=== PATIENT | male | born 1980 | race Caucasian/White ===

== ENCOUNTER 2017-03-21 17:24 | Emergency (ER) | payer MEDICAID ==
[~2017-03-21] VITALS: Ht 167.6 cm; Wt 75.5 kg
[~2017-03-21 17:24] MED LIST: ACET500T98; IBUP-725
[2017-03-21 17:29] VITALS: Ht 167.6 cm; Wt 75.5 kg
--- NOTE | 2017-03-21 19:01 | ERD ---
ER Documentation Chief Complaint Date/Time DATE: 03/21/17 TIME: 19:00 Chief Complaint Complains of back pain x 2 days HPI 36-year-old male presents here to emergency department for complaints of lower back pain for 2 days. Patient describes the pain as sharp pain,6/10 scale, as was upon movement. Patient denies any hematuria or dysuria. Patient denies any fever or chills. Patient denies any nausea or vomiting. Patient did not take any medications to help with symptoms. ROS All systems reviewed and are negative except as per history of present illness. Medications Home Meds Reported Medications Ibuprofen (Motrin) 400 Mg Tablet 07/23/10 Acetaminophen (Tylenol) 500 Mg Tab 07/23/10 Allergies Allergies: Coded Allergies: No Known Drug Allergies (Verified Allergy, Mild, 07/26/10) PMhx/Soc Medical and Surgical Hx: pt denies Medical Hx, pt denies Surgical Hx History of Surgery: No Anesthesia Reaction: No Hx Neurological Disorder: No Hx Respiratory Disorders: No Hx Cardiac Disorders: No Hx Psychiatric Problems: No Hx Miscellaneous Medical Probl: No Hx Alcohol Use: Yes (Social) Hx Substance Use: No Hx Tobacco Use: No FmHx Family History: No coronary disease, No diabetes, No other Physical Exam Vitals Vital Signs Date Time Temp Pulse Resp B/P Pulse Ox O2 Delivery O2 Flow Rate FiO2 03/21/17 17:29 98.2 71 20 138/81 99 Physical Exam GENERAL: The patient is well developed and appropriate for usual state of health, in no apparent distress. CHEST: Clear to auscultation bilaterally. There are no rales, wheezes or rhonchi. HEART: Regular rate and rhythm. No murmurs, clicks, rubs or gallops. No S3 or S4. ABDOMEN: Soft, nontender and nondistended. Good bowel sounds. No rebound or guarding. No gross peritonitis. No gross organomegaly or masses. No Velasquez sign or McBurney point tenderness. BACK: No midline or flank tenderness. EXTREMITIES: Equal pulses bilaterally. There is no peripheral clubbing, cyanosis or edema. No focal swelling or erythema. Full range of motion. Grossly neurovascularly intact. NEURO: Alert and oriented. Cranial nerves 2-12 intact. Motor strength in all 4 extremities with 5/5 strength. Sensation grossly intact. Normal speech and gait. SKIN: There is no apparent rash or petechia. The skin is warm and dry. HEMATOLOGIC AND LYMPHATIC: There is no evidence of excessive bruising or lymphedema. No gross cervical, axillary, or inguinal lymphadenopathy. Results 24 hrs Laboratory Tests Test 03/21/17 19:00 Urine Color YELLOW Urine Clarity CLEAR Urine pH 5.0 Urine Specific [place] 1.029 Urine Ketones NEGATIVEmg/dL Urine Nitrite NEGATIVEmg/dL Urine Bilirubin NEGATIVEmg/dL Urine Urobilinogen NEGATIVEmg/dL Urine Leukocyte Esterase NEGATIVELeu/ul Urine Hemoglobin NEGATIVEmg/dL Urine Glucose NEGATIVEmg/dL Urine Total Protein NEGATIVEmg/dl PROCEDURE: CT lumbar spine without contrast CLINICAL INDICATION: Low back pain TECHNIQUE: CT scan of the lumbar spine was performed. No IV contrast was administered. Coronal and sagittal reformatted images were obtained from the axial source images. Use of iterative reconstruction technique was employed. Images were reviewed on a high-resolution PACS workstation. images. The calculated radiation dose measures 309.45 mGy centimeters. The CTDI measures 13.12 mGy. One or more of the following dose reduction techniques were used: - Automated exposure control. - Adjustment of the mA and/or kV according to patient size . - Use of iterative reconstruction technique. Images were reviewed on a high-resolution PACS workstation COMPARISON: None. FINDINGS: There is preservation of the normal lumbar lordosis. There are no acute vertebral body fractures. The paraspinal soft tissues are within normal limits.. T12-L1:The disk height is preserved. There is no spinal stenosis. The facet joints are maintained. L1-L2:The disk height is preserved. There is no spinal stenosis. The facet joints are maintained. L2-L3:The disk height is preserved. There is no spinal stenosis. The facet joints are maintained. L3-L4:The disk height is preserved. There is no spinal stenosis. The facet joints are maintained. L4-L5:The disk height is preserved. There is no spinal stenosis. The facet joints are maintained. L5-S1:The disk height is preserved. There is no spinal stenosis. The facet joints are maintained. IMPRESSION: 1. No acute osseous abnormality or evidence of fracture. 2. Preserved disc spaces. RPTAT: UU .Erick de la Lama, MD, MD Date Time Electronically viewed and signed by .Erick Canales MD, MD on 03/21/2017 19:02 .d/ CC: MARY BETH CHRISTIANSON NP Procedures/MDM Medical Decision Making: Patient's pain is most likely consistent with a back strain. There is no suspicion for neurovascular compromise. Patient has intact sensation and circulation of the affected extremity and distal extremities. No incontinence, no suspicion for cauda equina syndrome, no saddle anesthesia, no symptoms of any acute bacterial infection, no symptoms of any perirectal abscesses, pilonidal cyst.There is low suspicion for septic arthritis. Patient does not have any fever. No symptoms of any aortic dissection or aortic aneurysm. Radiology exam not indicated at this time. Disposition: Home. Patient is given prescription for ibuprofen for mild to moderate pain, [place] for severe pain, Flexeril for muscle spasm. Patient was advised to avoid heavy lifting , apply warm compresses on affected area. Patient was advised that if symptoms are worse, numbness, tingling, high fever, unable to move joint, worsening symptoms, to return to emergency department immediately. Otherwise, patient is advised to follow up with the primary care doctor in 5-7 days for reevaluation of symptoms. Disclaimer: Inadvertent spelling and grammatical errors are likely due to EHR/ dictation software use and do not reflect on the overall quality of patient care. Also, please note that the electronic time recorded on this note does not necessarily reflect the actual time of the patient encounter. Departure Diagnosis: Primary Impression: Back pain Back pain location: low back pain Chronicity: acute Back pain laterality: bilateral Sciatica presence: without sciatica Qualified Code: M54.5 - Acute bilateral low back pain without sciatica Condition: Stable Patient Instructions: Back Pain (Acute Or Chronic) MARY BETH CHRISTIANSON NP Mar 21, 2017 19:01
[2017-03-21 19:34] LABS: ADD UMIC NO; UR ASCORBIC ACID NEGATIVE (NEGATIVE); UR BILIRUBIN (Dip) NEGATIVE (NEGATIVE); UR BLOOD (Dip) NEGATIVE (NEGATIVE); UR CLARITY CLEAR (CLEAR); UR COLOR YELLOW (YELLOW); UR GLUCOSE (Dip) NEGATIVE (NEGATIVE); UR KETONES (Dip) NEGATIVE (NEGATIVE); UR LEUKOCYTE ESTERASE (Dip) NEGATIVE Leu/ul (NEGATIVE); UR NITRITE (Dip) NEGATIVE (NEGATIVE); UR SPECIFIC GRAVITY (Dip) 1.029 (1.003-1.030); UR TOTAL PROTEIN (Dip) NEGATIVE (NEGATIVE); UR UROBILINOGEN (Dip) NEGATIVE (NEGATIVE)
[2017-03-21] MEDS ORDERED: IBUP-1542 PO (19:39)
[2017-03-21] MEDS ORDERED: HYDR-906 PO (19:39)
[2017-03-21] MEDS ORDERED: CYCL-319 PO (19:39)
[2017-03-21 20:04] VITALS: BP 128/79; PULSE 81; RESP 18; TEMP 98.5
== END 2017-03-21 20:05 | disposition home or self-care (01) ==
LOC: FTE 17:24
DX: M54.5 Low back pain (principal)
CPT/HCPCS: 72131; 81003; Z7502

== ENCOUNTER 2017-03-31 09:05 | Emergency (ER) | payer MEDICAID ==
[~2017-03-31] VITALS: Ht 165.1 cm; Wt 77.0 kg
[~2017-03-31 09:05] MED LIST changes: +CYCL-319 PO; +HYDR-906 PO; +IBUP-1542 PO
[2017-03-31 09:08] VITALS: Ht 165.1 cm; Wt 77.0 kg
[2017-03-31] MEDS ORDERED: LIDOCAINE/MYLANTA 40 ML BTL PO STA (09:29)
--- NOTE | 2017-03-31 09:39 | ERD ---
ER Documentation Chief Complaint Chief Complaint EPIGASTRIC PAIN RADIATING TO BACK 3WKS, SEEN HERE BEFORE HPI 36-year-old male with history of gastritis presents with epigastric abdominal pain radiating to his left upper quadrant and mid back for 3 weeks. Pain is constant, not improving with Nexium. Patient reports that it is achy pain, no change with food. He denies any trauma, fevers, chills, chest pain or shortness of breath. ROS All systems reviewed and are negative except as per history of present illness. Medications Home Meds Active Scripts Ranitidine Hcl* (Zantac*) 150 Mg Tablet, 150 MG PO BID Y for EPIGASTRIC PAIN, # 30 TAB Prov:RAY DELGADILLO PA-C 03/31/17 Cyclobenzaprine Hcl* (Cyclobenzaprine Hcl*) 10 Mg Tablet, 10 MG PO TID, #15 TAB Prov:MARY BETH CHRISTIANSON NP 03/21/17 Hydrocodone/Acetaminophen ([place] 5-325 Tablet) 1 Each Tablet, 1 TAB PO Q6H Y for PAIN, #20 TAB Prov:MARY BETH CHRISTIANSON NP 03/21/17 Ibuprofen* (Motrin*) 600 Mg Tab, 600 MG PO Q6H Y for PAIN AND OR ELEVATED TEMP, #30 TAB Prov:MARY BETH CHRISTIANSON NP 03/21/17 Reported Medications Ibuprofen (Motrin) 400 Mg Tablet 07/23/10 Acetaminophen (Tylenol) 500 Mg Tab 07/23/10 Allergies Allergies: Coded Allergies: No Known Drug Allergies (Verified Allergy, Mild, 07/26/10) PMhx/Soc History of Surgery: No Anesthesia Reaction: No Hx Neurological Disorder: No Hx Respiratory Disorders: No Hx Cardiac Disorders: No Hx Psychiatric Problems: No Hx Miscellaneous Medical Probl: No Hx Alcohol Use: Yes (Social) Hx Substance Use: No Hx Tobacco Use: No Smoking Status: Never smoker Physical Exam Vitals Vital Signs Date Time Temp Pulse Resp B/P Pulse Ox O2 Delivery O2 Flow Rate FiO2 03/31/17 09:08 98.1 70 18 143/85 100 Physical Exam General: Well-developed, well-nourished. The patient appears in no acute distress. HEENT: Head is normocephalic, atraumatic. No scleral icterus. Neck: Supple. Nontender. Lungs: Clear to auscultation. Normal air movement. Heart: Regular rate and rhythm. S1 and S2 are normal. No murmurs, gallops, or rubs. Abdomen: Soft, localized tenderness in the epigastric region, no masses, no hepatosplenomegaly nondistended. Bowel sounds are normoactive. Velasquez sign. No midline tenderness, no rashes, nontender to palpation. Extremities: No clubbing or cyanosis. Normal pulses. Moving extremities x 4. No weakness. Neurologic: Alert and oriented 3. No focal deficits. Skin: Normal turgor. No rash or lesions. Result Diagram: 03/31/17 0740 03/31/17 0740 Results 24 hrs Laboratory Tests Test 03/31/17 07:40 03/31/17 09:37 White Blood Count 5.910^3/ul Red Blood Count 5.5210^6/ul Hemoglobin 17.0g/dl Hematocrit 49.4% Mean Corpuscular Volume 89.5fl Mean Corpuscular Hemoglobin 30.8pg Mean Corpuscular Hemoglobin Concent 34.4g/dl Red Cell Distribution Width 11.9% Platelet Count 63388^3/UL Mean Platelet Volume 9.7fl Neutrophils % 69.7% Lymphocytes % 21.2% Monocytes % 6.7% Eosinophils % 1.7% Basophils % 0.5% Nucleated Red Blood Cells % 0.0/100WBC Neutrophils # 4.110^3/ul Lymphocytes # 1.210^3/ul Monocytes # 0.410^3/ul Eosinophils # 0.110^3/ul Basophils # 0.010^3/ul Nucleated Red Blood Cells # 0.010^3/ul Sodium Level 142mmol/L Potassium Level 4.1mmol/L Chloride Level 103mmol/L Carbon Dioxide Level 27mmol/L Anion Gap 16 Blood Urea Nitrogen 15mg/dl Creatinine 1.03mg/dl Glucose Level 91mg/dl Calcium Level 9.7mg/dl Total Bilirubin 0.4mg/dl Direct Bilirubin 0.00mg/dl Indirect Bilirubin 0.4mg/dl Aspartate Amino Transf (AST/SGOT) 34IU/L Alanine Aminotransferase (ALT/SGPT) 64IU/L Alkaline Phosphatase 53IU/L Total Protein 8.5g/dl Albumin 5.0g/dl Globulin 3.50g/dl Albumin/Globulin Ratio 1.42 Lipase 79U/L Urine Color YELLOW Urine Clarity CLEAR Urine pH 5.0 Urine Specific [place] 1.020 Urine Ketones NEGATIVEmg/dL Urine Nitrite NEGATIVEmg/dL Urine Bilirubin NEGATIVEmg/dL Urine Urobilinogen NEGATIVEmg/dL Urine Leukocyte Esterase NEGATIVELeu/ul Urine Hemoglobin NEGATIVEmg/dL Urine Glucose NEGATIVEmg/dL Urine Total Protein NEGATIVEmg/dl Current Medications Medications (Trade) Dose Ordered Sig/[place] Route PRN Reason Start Time Stop Time Status Last Admin Dose Admin Miscellaneous Medication (Gi Cocktail (2)) 40 ml ONCE STAT PO 03/31/17 09:29 03/31/17 09:30 DC 03/31/17 09:36 DIAGNOSTIC IMAGING REPORT Patient: VAMSI ARIAS : 1980 Age: 36 Sex: M MR #: [id number] DOS: 03/31/17928 Ordering MD: RAY DELGADILLO PA-C Location: [facility] Room/Bed: PROCEDURE: XR Chest. CLINICAL INDICATION: Pain . TECHNIQUE: Single frontal chest x-ray. COMPARISON: None. FINDINGS: The lungs are clear of acute infiltrates, edema, effusions, or masses.. The cardiomediastinal silhouette is unremarkable. The osseous structures are intact. IMPRESSION: No acute cardiopulmonary disease. RPTAT: GG .Garland Sosa MD, MD Date Time Electronically viewed and signed by .Garland Sosa MD, on 03/31/2017 09:49 .L/ CC: RAY DELGADILLO PA-C Procedures/MDM ED course: Patient was given a GI cocktail, labs and urine were obtained. Medical decision m[age]-year-old male presents epigastric abdominal pain, gastritis versus GERD versus ulcer. Other differentials considered include pancreatitis, dissection, acute coronary syndrome, acute cholecystitis, choledocholithiasis. Patient's blood work is unremarkable, there is no evidence of anemia, leukocytosis, transaminitis or pancreatitis. Patient symptoms are most consistent with gastritis versus GERD versus an ulcer. He has been on Nexium for several weeks now without improvement. He has been asked to discontinue ibuprofen, start ranitidine and follow-up outpatient for endoscopy to rule out ulcer. No evidence of a anemia, gastrointestinal bleeding , hemodynamic instability, Or acute surgical abdominal process seen. Departure Diagnosis: Primary Impression: Epigastric pain Condition: Good RAY DELGADILLO PA-C Mar 31, 2017 09:39
--- NOTE | 2017-03-31 09:50 | RADRPT ---
PROCEDURE: XR Chest. CLINICAL INDICATION: Pain . TECHNIQUE: Single frontal chest x-ray. COMPARISON: None. FINDINGS: The lungs are clear of acute infiltrates, edema, effusions, or masses.. The cardiomediastinal silho uette is unremarkable. The osseous structures are intact. IMPRESSION: No acute cardiopulmonary disease. RPTAT: GG .Garland Sosa MD, MD Date Time Electronically viewed and signed by .Garland Sosa MD, on 03/31/2017 09:49 .L/
[2017-03-31 09:56] LABS: BASOPHILS % 0.5 % (0.0-2.0); EOSINOPHILS # 0.1 10^3/ul (0.0-0.5); EOSINOPHILS % 1.7 % (0.0-7.0); HEMATOCRIT 49.4 % (42.0-52.0); LYMPHOCYTES # 1.2 10^3/ul (0.8-2.9); LYMPHOCYTES % 21.2 % (15.0-51.0); MEAN CORPUSCULAR HEMOGLOBIN 30.8 pg (29.0-33.0); MEAN CORPUSCULAR HGB CONC 34.4 g/dl (32.0-37.0); MEAN CORPUSCULAR VOLUME 89.5 fl (82.0-101.0); MEAN PLATELET VOLUME 9.7 fl (7.4-10.4); MONOCYTE # 0.4 10^3/ul (0.3-0.9); MONOCYTES % 6.7 % (0.0-11.0); NEUTROPHIL # 4.1 10^3/ul (1.6-7.5); NEUTROPHILS % 69.7 % (39.0-77.0); PLATELET COUNT 270 10^3/UL (140-415); RED BLOOD COUNT 5.52 10^6/ul (4.70-6.10); RED CELL DISTRIBUTION WIDTH 11.9 % (11.5-14.5); WHITE BLOOD COUNT 5.9 10^3/ul (4.8-10.8)
[2017-03-31 09:58] LABS: ADD UMIC NO; UR ASCORBIC ACID NEGATIVE (NEGATIVE); UR BILIRUBIN (Dip) NEGATIVE (NEGATIVE); UR BLOOD (Dip) NEGATIVE (NEGATIVE); UR CLARITY CLEAR (CLEAR); UR COLOR YELLOW (YELLOW); UR GLUCOSE (Dip) NEGATIVE (NEGATIVE); UR KETONES (Dip) NEGATIVE (NEGATIVE); UR LEUKOCYTE ESTERASE (Dip) NEGATIVE Leu/ul (NEGATIVE); UR NITRITE (Dip) NEGATIVE (NEGATIVE); UR TOTAL PROTEIN (Dip) NEGATIVE (NEGATIVE); UR UROBILINOGEN (Dip) NEGATIVE (NEGATIVE)
[2017-03-31 10:15] LABS: ALBUMIN/GLOBULIN RATIO 1.42; BILIRUBIN,INDIRECT 0.4 mg/dl (0-1.1); BILIRUBIN,TOTAL 0.4 mg/dl (0.2-1.3); CALCIUM 9.7 mg/dl (8.4-10.2); CREATININE 1.03 mg/dl (0.61-1.24); POTASSIUM 4.1 mmol/L (3.5-5.1); TOTAL PROTEIN 8.5 g/dl (6.1-8.1)
[2017-03-31] MEDS ORDERED: RANI150T9 PO (10:19)
== END 2017-03-31 10:30 | disposition home or self-care (01) ==
LOC: FTE 09:05
DX: R10.13 Epigastric pain (principal)
CPT/HCPCS: 36415; 71010; 80053; 81003; 83690; 85025; Z7502; Z7610

== ENCOUNTER 2017-04-04 06:59 | Emergency (ER) | payer MEDICAID ==
[~2017-04-04] VITALS: Wt 72.7 kg
[~2017-04-04 06:59] MED LIST changes: +RANI150T9 PO
[2017-04-04] MEDS ORDERED: HYDROCODONE/APAP (5/325) TAB PO ONE (07:30)
[2017-04-04 07:56] LABS: BASOPHILS % 0.5 % (0.0-2.0); EOSINOPHILS # 0.1 10^3/ul (0.0-0.5); EOSINOPHILS % 1.6 % (0.0-7.0); HEMOGLOBIN 16.3 g/dl (14.0-18.0); LYMPHOCYTES # 1.3 10^3/ul (0.8-2.9); LYMPHOCYTES % 21.3 % (15.0-51.0); MEAN CORPUSCULAR HEMOGLOBIN 30.8 pg (29.0-33.0); MEAN CORPUSCULAR VOLUME 90.7 fl (82.0-101.0); MEAN PLATELET VOLUME 9.7 fl (7.4-10.4); MONOCYTE # 0.5 10^3/ul (0.3-0.9); MONOCYTES % 7.8 % (0.0-11.0); NEUTROPHIL # 4.2 10^3/ul (1.6-7.5); NEUTROPHILS % 68.5 % (39.0-77.0); PLATELET COUNT 262 10^3/UL (140-415); RED BLOOD COUNT 5.29 10^6/ul (4.70-6.10); WHITE BLOOD COUNT 6.2 10^3/ul (4.8-10.8)
[2017-04-04] MEDS ORDERED: LIDOCAINE/MYLANTA 40 ML BTL PO ONE (08:00)
[2017-04-04 08:06] LABS: ADD UMIC NO; UR ASCORBIC ACID NEGATIVE (NEGATIVE); UR BILIRUBIN (Dip) NEGATIVE (NEGATIVE); UR BLOOD (Dip) NEGATIVE (NEGATIVE); UR CLARITY CLEAR (CLEAR); UR COLOR YELLOW (YELLOW); UR GLUCOSE (Dip) NEGATIVE (NEGATIVE); UR KETONES (Dip) NEGATIVE (NEGATIVE); UR LEUKOCYTE ESTERASE (Dip) NEGATIVE Leu/ul (NEGATIVE); UR NITRITE (Dip) NEGATIVE (NEGATIVE); UR SPECIFIC GRAVITY (Dip) 1.017 (1.003-1.030); UR TOTAL PROTEIN (Dip) NEGATIVE (NEGATIVE); UR UROBILINOGEN (Dip) NEGATIVE (NEGATIVE)
--- NOTE | 2017-04-04 08:20 | RADRPT ---
PROCEDURE: US Abdomen Limited . CLINICAL INDICATION: Abdominal pain TECHNIQUE: Multiple real-time images were acquired of the patient's right upper quadrant abdomen u tilizing a high resolution transducer. COMPARISON: None FINDINGS: The liver measures 12.8 cm and demonstrates a coarsened echogenicity. The gallbladder is filled with a moderate amount of bile. No shadowing echogenic stones or masses are seen in the gallbladder. T he gallbladder wall is not thickened at 1.8 mm. No pericholecystic fluid is noted. The common bile d uct measures 5.6 mm in diameter. The pancreas is not well visualized. Right kidney measures 10.0 cm. Right kidney demonstrates a normal echogenicity. No hydronephrosis, masses or stones are noted. IMPRESSION: Diffuse fatty infiltration of the liver. Pancreas not well visualized. If characterization of this structure is needed repeat exam or CT/MRI is recommended. RPTAT: AA .Tucker Pickett MD, MD Date Time Electronically viewed and signed by .Tucker Pickett MD, on 04/04/2017 08:20 .P/
--- NOTE | 2017-04-04 08:21 | ERD ---
ER Documentation Chief Complaint Chief Complaint abd pain, nausea, diarrhea HPI 36-year-old male presents with recurring epigastric abdominal pain for the past week, reports also nausea with continuing diarrhea. The patient describes achy pain, worse with eating and goes to his back and he has been seen here previously with normal labs, normal chest x-ray. The patient has been on ranitidine with Nexium and states that his pain is improved and rated at 3 out of 10. He does continue to have loose stools daily approximately 3-4 times a day. The stools are nonbloody and non-mucousy. ROS All systems reviewed and are negative except as per history of present illness. Medications Home Meds Active Scripts Esomeprazole Mag Trihydrate (Nexium) 40 Mg Capsule.dr, 40 MG PO DAILY, #30 CAP Prov:RAY DELGADILLO PA-C 04/04/17 Loperamide Hcl* (Imodium*) 2 Mg Capsule, 2 MG PO .AFTER EA LOOSE BM Y for DIARRHEA, #10 TAB Prov:RAY DELGADILLO PA-C 04/04/17 Ranitidine Hcl* (Zantac*) 150 Mg Tablet, 150 MG PO BID Y for EPIGASTRIC PAIN, # 30 TAB Prov:RAY DELGADILLO PA-C 03/31/17 Cyclobenzaprine Hcl* (Cyclobenzaprine Hcl*) 10 Mg Tablet, 10 MG PO TID, #15 TAB Prov:MARY BETH CHRISTIANSON NP 03/21/17 Hydrocodone/Acetaminophen ([place] 5-325 Tablet) 1 Each Tablet, 1 TAB PO Q6H Y for PAIN, #20 TAB Prov:MARY BETH CHRISTIANSON NP 03/21/17 Ibuprofen* (Motrin*) 600 Mg Tab, 600 MG PO Q6H Y for PAIN AND OR ELEVATED TEMP, #30 TAB Prov:MARY BETH CHRISTIANSON NP 03/21/17 Reported Medications Ibuprofen (Motrin) 400 Mg Tablet 07/23/10 Acetaminophen (Tylenol) 500 Mg Tab 07/23/10 Allergies Allergies: Coded Allergies: No Known Drug Allergies (Verified Allergy, Mild, 04/04/17) PMhx/Soc Medical and Surgical Hx: pt denies Medical Hx, pt denies Surgical Hx History of Surgery: No Anesthesia Reaction: No Hx Neurological Disorder: No Hx Respiratory Disorders: No Hx Cardiac Disorders: No Hx Psychiatric Problems: No Hx Miscellaneous Medical Probl: No Hx Alcohol Use: Yes (Social) Hx Substance Use: No Hx Tobacco Use: No Smoking Status: Never smoker Physical Exam Vitals Vital Signs Date Time Temp Pulse Resp B/P Pulse Ox O2 Delivery O2 Flow Rate FiO2 04/04/17 09:47 71 20 121/72 100 Room Air 04/04/17 07:00 97.6 72 20 116/72 100 Physical Exam General: Well-developed, well-nourished. The patient appears in no acute distress. HEENT: Head is normocephalic, atraumatic. No scleral icterus. Neck: Supple. Nontender. Lungs: Clear to auscultation. Normal air movement. Heart: Regular rate and rhythm. S1 and S2 are normal. No murmurs, gallops, or rubs. Abdomen: Soft, minimal abdominal tenderness when epigastric region is palpated, there is no Velasquez sign, no hepatosplenomegaly, no masses nondistended. Bowel sounds are normoactive. Extremities: No clubbing or cyanosis. Normal pulses. Moving extremities x 4. No weakness. Neurologic: Alert and oriented 3. No focal deficits. Skin: Normal turgor. No rash or lesions. Result Diagram: 04/04/1745 04/04/17744 Results 24 hrs Laboratory Tests Test 04/04/17 07:45 White Blood Count 6.210^3/ul Red Blood Count 5.2910^6/ul Hemoglobin 16.3g/dl Hematocrit 48.0% Mean Corpuscular Volume 90.7fl Mean Corpuscular Hemoglobin 30.8pg Mean Corpuscular Hemoglobin Concent 34.0g/dl Red Cell Distribution Width 12.0% Platelet Count 67325^3/UL Mean Platelet Volume 9.7fl Neutrophils % 68.5% Lymphocytes % 21.3% Monocytes % 7.8% Eosinophils % 1.6% Basophils % 0.5% Nucleated Red Blood Cells % 0.0/100WBC Neutrophils # 4.210^3/ul Lymphocytes # 1.310^3/ul Monocytes # 0.510^3/ul Eosinophils # 0.110^3/ul Basophils # 0.010^3/ul Nucleated Red Blood Cells # 0.010^3/ul Urine Color YELLOW Urine Clarity CLEAR Urine pH 6.0 Urine Specific [place] 1.017 Urine Ketones NEGATIVEmg/dL Urine Nitrite NEGATIVEmg/dL Urine Bilirubin NEGATIVEmg/dL Urine Urobilinogen NEGATIVEmg/dL Urine Leukocyte Esterase NEGATIVELeu/ul Urine Hemoglobin NEGATIVEmg/dL Urine Glucose NEGATIVEmg/dL Urine Total Protein NEGATIVEmg/dl Sodium Level 142mmol/L Potassium Level 4.0mmol/L Chloride Level 102mmol/L Carbon Dioxide Level 29mmol/L Anion Gap 15 Blood Urea Nitrogen 12mg/dl Creatinine 1.09mg/dl Glucose Level 95mg/dl Calcium Level 9.4mg/dl Total Bilirubin 0.4mg/dl Direct Bilirubin 0.00mg/dl Indirect Bilirubin 0.4mg/dl Aspartate Amino Transf (AST/SGOT) 34IU/L Alanine Aminotransferase (ALT/SGPT) 61IU/L Alkaline Phosphatase 52IU/L Total Protein 8.2g/dl Albumin 5.1g/dl Globulin 3.10g/dl Albumin/Globulin Ratio 1.64 Lipase 80U/L Current Medications Medications (Trade) Dose Ordered Sig/[place] Route PRN Reason Start Time Stop Time Status Last Admin Dose Admin Acetaminophen/ Hydrocodone Bitart ([place] (5/325)) 1 tab ONCE ONCE PO 04/04/17 07:30 04/04/17 07:35 DC Miscellaneous Medication (Gi Cocktail (2)) 40 ml ONCE ONCE PO 04/04/17 08:00 04/04/17 08:01 DC 04/04/17 07:37 DIAGNOSTIC IMAGING REPORT Patient: VAMSI ARIAS : 1980 Age: 36 Sex: M MR #: [id number] DOS: 04/04/17 0723 Ordering MD: RAY DELGADILLO PA-C Location: [facility] Room/Bed: PROCEDURE: US Abdomen Limited . CLINICAL INDICATION: Abdominal pain TECHNIQUE: Multiple real-time images were acquired of the patient's right upper quadrant abdomen utilizing a high resolution transducer. COMPARISON: None FINDINGS: The liver measures 12.8 cm and demonstrates a coarsened echogenicity. The gallbladder is filled with a moderate amount of bile. No shadowing echogenic stones or masses are seen in the gallbladder. The gallbladder wall is not thickened at 1.8 mm. No pericholecystic fluid is noted. The common bile duct measures 5.6 mm in diameter. The pancreas is not well visualized. Right kidney measures 10.0 cm. Right kidney demonstrates a normal echogenicity. No hydronephrosis, masses or stones are noted. IMPRESSION: Diffuse fatty infiltration of the liver. Pancreas not well visualized. If characterization of this structure is needed repeat exam or CT/MRI is recommended. RPTAT: AA .Tucker Pickett MD, MD Date Time Electronically viewed and signed by .Tucker Pickett MD, MD on 04/04/2017 08:20 .P/ CC: RAY DELGADILLO PA-C Radiology Main Line: [phone] DIAGNOSTIC IMAGING REPORT Patient: VAMSI ARIAS : 1980 Age: 36 Sex: M MR #: [id number] DOS: 04/04/17 0837 Ordering MD: RAY DELGADILLO PA-C Location: [facility] Room/Bed: PROCEDURE: CT Abdomen and Pelvis without contrast. CLINICAL INDICATION: Abdominal and pelvic pain. TECHNIQUE: CT scan of the abdomen and pelvis without contrast was performed. Coronal and sagittal reformatted images were obtained from the axial source images. Images were reviewed on a high-resolution PACS workstation. Total exam DLP is 527.43 mGy-cm. CTDIvol is 8.88 mGy. One or more of the following dose reduction techniques were used: Automated exposure control, adjustment of the mA and/or kV according to patient size, use of iterative reconstruction technique. COMPARISON: Right upper quadrant abdomen ultrasound done earlier the same day. FINDINGS: The lung bases are normal. There is no pleural effusion. The liver is normal in size and attenuation. There is no focal hepatic lesion. The gallbladder and bile ducts are normal. The spleen is normal in size. There is no focal splenic lesion. Both adrenals are normal with no enlargement or mass. The pancreas is unremarkable with no mass or evidence of pancreatitis. There is no renal mass or hydronephrosis. There is no renal calculus or ureteral calculus. The abdominal aorta is not dilated. There is no retroperitoneal lymphadenopathy or mass. There is no pelvic lymphadenopathy or mass. The bladder and distal ureters are normal. The periappendiceal region is unremarkable with no evidence of appendicitis. The appendix is well seen and appears normal. The bowel and mesentery are normal. There is no free fluid or free gas. The osseous structures are unremarkable with no fracture or lytic lesion. IMPRESSION: 1. Unremarkable CT scan of the abdomen and pelvis. RPTAT: QQ .Price Duran MD, MD Date Time Electronically viewed and signed by .Price Duran MD, on 04/04/2017 09:28 .R/ CC: RAY DELGADILLO PA-C Procedures/MDM 36-year-old male comes in with recurring abdominal pain in the epigastric region going to his back, the patient has been evaluated multiple times but has not been able to follow-up with her primary care doctor. His third evaluation, patient had blood work as well as gallbladder ultrasound and CT scan of the abdomen pelvis were on all unremarkable. There is no evidence of leukocytosis, pancreatitis, transaminitis, gallstones, or acute surgical abdominal process. The case was discussed with attending physician also agrees that the patient can be discharged home given his workup is normal today. He has been given Nexium in the past and is about to run out, and then he was also given ranitidine and his pain is decreased to 3 out of 10 after these interventions have been given. He will be given additional prescription for Nexium to continue at home, and will be given Imodium for diarrhea. I will be giving him a list of clinics to follow-up outpatient to find a PCP and he was informed that he needs to follow-up outpatient for an endoscopy. Suspicion for GI bleed is low, patient's vital signs are normal, there is no anemia and he may be discharged home. Departure Diagnosis: Primary Impression: Abdominal pain Condition: Good RAY DELGADILLO PA-C Apr 04, 2017 08:21
[2017-04-04 08:25] LABS: ALBUMIN 5.1 g/dl (3.3-4.9); ALBUMIN/GLOBULIN RATIO 1.64; BILIRUBIN,INDIRECT 0.4 mg/dl (0-1.1); BILIRUBIN,TOTAL 0.4 mg/dl (0.2-1.3); CALCIUM 9.4 mg/dl (8.4-10.2); CREATININE 1.09 mg/dl (0.61-1.24); TOTAL PROTEIN 8.2 g/dl (6.1-8.1)
--- NOTE | 2017-04-04 09:29 | RADRPT ---
PROCEDURE: CT Abdomen and Pelvis without contrast. CLINICAL INDICATION: Abdominal and pelvic pain. TECHNIQUE: CT scan of the abdomen and pelvis without contrast was performed. Coronal and sagittal reformatted images were obtained from the axial source images. Images were reviewed on a high-resolu [employer] PACS workstation. Total exam DLP is 527.43 mGy-cm. CTDIvol is 8.88 mGy. One or more of the fo [facility] dose reduction techniques were used: Automated exposure control, adjustment of the mA and/or kV according to patient size, use of iterative reconstruction technique. COMPARISON: Right upper quadrant abdomen ultrasound done earlier the same day. FINDINGS: The lung bases are normal. There is no pleural effusion. The liver is normal in size and attenuation. There is no focal hepatic lesion. The gallbladder and bile ducts are normal. The spleen is normal in size. There is no focal splenic lesion. Both adrenals are normal with no enlargement or mass. The pancreas is unremarkable with no mass or evidence of pancreatitis. There is no renal mass or hydronephrosis. There is no renal calculus or ureteral calculus. The abdominal aorta is not dilated. There is no retroperitoneal lymphadenopathy or mass. There is no pelvic lymphadenopathy or mass. The bladder and distal ureters are normal. The periappendiceal region is unremarkable with no evidence of appendicitis. The appendix is well se en and appears normal. The bowel and mesentery are normal. There is no free fluid or free gas. The osseous structures are unremarkable with no fracture or lytic lesion. IMPRESSION: 1. Unremarkable CT scan of the abdomen and pelvis. RPTAT: QQ .Price Duran MD, MD Date Time Electronically viewed and signed by .Price Duran MD, MD on 04/04/2017 09:28 .R/
[2017-04-04] MEDS ORDERED: LOPE2CAP PO (09:40)
[2017-04-04] MEDS ORDERED: ESOM40CA PO (09:40)
[2017-04-04 09:47] VITALS: BP 121/72; PULSE 71; RESP 20
== END 2017-04-04 09:49 | disposition home or self-care (01) ==
LOC: FTE 06:59
DX: R10.13 Epigastric pain (principal)
CPT/HCPCS: 36415; 74176; 76705; 80053; 81003; 83690; 85025; Z7502; Z7610

== ENCOUNTER 2017-04-26 05:22 | Emergency (ER) | payer MEDICAID ==
[~2017-04-26] VITALS: Ht 165.1 cm; Wt 73.8 kg
[~2017-04-26 05:22] MED LIST changes: +ESOM40CA PO; +LOPE2CAP PO
[2017-04-26 05:25] VITALS: Ht 165.1 cm; Wt 73.8 kg
[2017-04-26 06:32] VITALS: BP 120/80; PULSE 77; RESP 18; TEMP 98
--- NOTE | 2017-04-26 06:53 | ERD ---
ER Documentation Chief Complaint Chief Complaint fever/body aches/nausea x 1 day. "i'm feeling burning inside" HPI Patient is a 36-year-old male with a past medical history of gastritis presents to the ED for concerns of "feeling burning inside". Patient reports epigastric pain for last month. Patient states he has a burning sensation in his epigastric region that comes and goes. At this time he has no pain. Patient reports taking his temperature at home and states he has never had a temperature at home either. Patient reports nausea however he denies any vomiting. Patient states that he often has increased urgency to have a bowel movement. Patient also reports a decreased appetite. Patient states that every time he eats he feels nauseous and thus does not want to eat. Patient denies any chest pain, shortness of breath, left upper extremity, diaphoresis or loss consciousness. Patient does have endoscopy scheduled on May 05. Patient is currently taking Nexium and Carafate. Admits to fried food use and alcohol use. No recent travel. No sick contacts. ROS All systems reviewed and are negative except as per history of present illness. Medications Home Meds Active Scripts Esomeprazole Mag Trihydrate (Nexium) 40 Mg Capsule.dr, 40 MG PO DAILY, #30 CAP Prov:RAY DELGADILLO PA-C 04/04/17 Loperamide Hcl* (Imodium*) 2 Mg Capsule, 2 MG PO .AFTER EA LOOSE BM Y for DIARRHEA, #10 TAB Prov:RAY DELGADILLO PA-C 04/04/17 Ranitidine Hcl* (Zantac*) 150 Mg Tablet, 150 MG PO BID Y for EPIGASTRIC PAIN, # 30 TAB Prov:RAY DELGADILLO PA-C 03/31/17 Cyclobenzaprine Hcl* (Cyclobenzaprine Hcl*) 10 Mg Tablet, 10 MG PO TID, #15 TAB Prov:MARY BETH CHRISTIANSON NP 03/21/17 Hydrocodone/Acetaminophen ([place] 5-325 Tablet) 1 Each Tablet, 1 TAB PO Q6H Y for PAIN, #20 TAB Prov:MARY BETH CHRISTIANSON NP 03/21/17 Ibuprofen* (Motrin*) 600 Mg Tab, 600 MG PO Q6H Y for PAIN AND OR ELEVATED TEMP, #30 TAB Prov:MARY BETH CHRISTIANSON NP 10/13/17 Reported Medications Ibuprofen (Motrin) 400 Mg Tablet 07/23/10 Acetaminophen (Tylenol) 500 Mg Tab 07/23/10 Allergies Allergies: Coded Allergies: No Known Drug Allergies (Verified Allergy, Mild, 04/04/17) PMhx/Soc History of Surgery: No Anesthesia Reaction: No Hx Neurological Disorder: No Hx Respiratory Disorders: No Hx Cardiac Disorders: No Hx Psychiatric Problems: No Hx Miscellaneous Medical Probl: No Hx Alcohol Use: Yes (Social) Hx Substance Use: No Hx Tobacco Use: No Smoking Status: Never smoker Physical Exam Vitals Vital Signs Date Time Temp Pulse Resp B/P Pulse Ox O2 Delivery O2 Flow Rate FiO2 04/26/17 06:32 98.0 77 18 120/80 99 Room Air 04/26/17 05:25 98.0 84 20 167/98 100 Physical Exam GENERAL: Well-developed, well-nourished male. Appears in no acute distress. HEAD: Normocephalic, atraumatic. EYES: Pupils are equally reactive bilaterally. EOMs grossly intact. No conjunctival erythema. NECK: Supple. No meningismus. Normal range of motion of the neck. LUNG: Clear to auscultation bilaterally. No rhonchi, wheezing, rales or coarse breath sounds. HEART: Regular rate and rhythm. No murmurs, rubs or gallops. ABDOMEN: No scars, ecchymosis or rashes noted. Soft, nontender, and nondistended. Positive bowel sounds in all four quadrants. No rebound tenderness , no guarding. (-) McBurney's point tenderness. No CVA tenderness. EXTREMITIES: Equal pulses bilaterally. No peripheral clubbing, cyanosis or edema. No unilateral leg swelling. NEUROLOGIC: Alert and oriented. Moving all four extremities without any difficulty. Normal speech. Steady gait. SKIN: Normal color. Warm and dry. No rashes or lesions. Procedures/MDM MEDICAL DECISION MAKING: Patient is a 36-year-old male who presents ED for concerns of "feeling burning inside". Patient reports symptoms for last month. Patient was recently diagnosed with gastritis and told that he would need an endoscopy on an outpatient basis to rule out any ulcers. Patient states he does have an oral endoscopy scheduled on May 05.. Vital signs were reviewed. Patient is afebrile. Patient was not hypoxic. Patient was hemodynamically stable. Given that patient continued to report feeling "burning inside" , I recheck the patient's temperature with nursing staff and it was noted to be 98.1 Fahrenheit. I reassured the patient that he does not have a temperature at this time. I explained to the patient with nursing staff present at length that his symptoms may be due to gastric ulcer. Patient is advised to avoid alcohol use, NSAID use, fried foods, spicy foods. I did offer the patient repeat blood work and medications however he declined. Patient said he was seen here in April 04 and at that time blood work and imaging studies were done. I did review the patient's medical records which show that patient's blood work was all within normal limits, gallbladder ultrasound showed fatty infiltration of the liver, and CT scan of the abdomen and pelvis was essentially unremarkable. At this time, patient's presentation is most consistent with epigastric pain of unknown known etiology however may be related to peptic ulcer disease versus H. pylori. Patient was advised to follow-up with his GI specialist as scheduled for an upcoming endoscopy on May 05. Low suspicion for ACS, bowel perforation, bowel obstruction, cholecystitis, cholelithiasis, choledocholithiasis, neck rupture, UTI, appendicitis. PRESCRIPTION: No new medications Patient was advised to continue all medications as prescribed including Carafate and Nexium. DISCHARGE: At this time, patient is stable for discharge and outpatient management. I have instructed the patient to follow-up with his/her primary care physician in 1-2 days. I have discussed with the patient the possibility of needing to see a specialist for further workup and imaging studies if symptoms persist. I have instructed the patient to promptly return to the ER for any new or worsening symptoms including increased pain, fever, nausea, vomiting, weakness or LOC. The patient and/or family expressed understanding of and agreement with this plan. All questions were answered. Home care instructions were provided. Disclaimer: Inadvertent spelling and grammatical errors are likely due to EHR/ dictation software use and do not reflect on the overall quality of patient care. Also, please note that the electronic time recorded on this note does not necessarily reflect the actual time of the patient encounter. Departure Diagnosis: Primary Impression: Gastritis Gastritis type: unspecified gastritis Chronicity: unspecified Gastritis bleeding: without bleeding Qualified Code: K29.70 - Gastritis without bleeding, unspecified chronicity, unspecified gastritis type Condition: Stable Patient Instructions: Peptic Ulcer Disease (All Causes), Peptic Ulcer (H. Pylori Infection Only) Referrals: [facility] YOU HAVE RECEIVED A MEDICAL SCREENING EXAM AND THE RESULTS INDICATE THAT YOU DO NOT HAVE A CONDITION THAT REQUIRES URGENT TREATMENT IN THE EMERGENCY DEPARTMENT. FURTHER EVALUATION AND TREATMENT OF YOUR CONDITION CAN WAIT UNTIL YOU ARE SEEN IN YOUR DOCTORS OFFICE WITHIN THE NEXT 1-2 DAYS. IT IS YOUR RESPONSIBILITY TO MAKE AN APPOINTMENT FOR FOLOW-UP CARE. IF YOU HAVE A PRIMARY DOCTOR --you should call your primary doctor and schedule an appointment IF YOU DO NOT HAVE A PRIMARY DOCTOR YOU CAN CALL OUR PHYSICIAN REFERRAL HOTLINE AT IF YOU CAN NOT AFFORD TO SEE A PHYSICIAN YOU CAN CHOSE FROM THE FOLLOWING [facility] [address] [facility] [address] [address] [facility] [facility] [address] [facility] [facility] [address] [facility]. [facility] [address] [facility]. [facility] YOU HAVE RECEIVED A MEDICAL SCREENING EXAM AND THE RESULTS INDICATE THAT YOU DO NOT HAVE A CONDITION THAT REQUIRES URGENT TREATMENT IN THE EMERGENCY DEPARTMENT. FURTHER EVALUATION AND TREATMENT OF YOUR CONDITION CAN WAIT UNTIL YOU ARE SEEN IN YOUR DOCTORS OFFICE WITHIN THE NEXT 1-2 DAYS. IT IS YOUR RESPONSIBILITY TO MAKE AN APPOINTMENT FOR FOLOW-UP CARE. IF YOU HAVE A PRIMARY DOCTOR --you should call your primary doctor and schedule and appointment IF YOU DO NOT HAVE A PRIMARY DOCTOR YOU CAN CALL OUR PHYSICIAN REFERRAL HOTLINE AT . IF YOU CAN NOT AFFORD TO SEE A PHYSICIAN YOU CAN CHOSE FROM THE FOLLOWING [facility]: [facility] [address] [place] [address] [facility] [address] [place] [address] [facility] [address] [place] [address] Additional Instructions: Llame al doctor ADALI y shaniqua frank BARBY PARA DENTRO DE 1-2 LUI.Dgale a la secretaria que nosotros le instruimos hacer esta barby.Avise o llame si estevez condicin se empeora antes de la barby. Regresa aqui si peor o no mejor. Continue medications. Follow up with GI specialist for endoscopy scheduled on May 05. Avoid spicy, fried, fatty foods. Avoid ibuprofen and alcohol. DIDIER VITALE PA-C Apr 26, 2017 06:53
== END 2017-04-26 06:35 | disposition home or self-care (01) ==
LOC: FTE 05:22
DX: K29.70 Gastritis, unspecified, without bleeding (principal)
CPT/HCPCS: 99282

== ENCOUNTER 2018-01-18 14:39 | Emergency (ER) | END 2018-01-18 15:50 | disposition home or self-care (01) ==

== ENCOUNTER 2018-05-03 08:54 | Emergency (ER) | END 2018-05-03 10:06 | disposition home or self-care (01) ==

== ENCOUNTER 2018-08-16 18:56 | Emergency (ER) | payer MEDICAID ==
[~2018-08-16] VITALS: Ht 165.1 cm; Wt 80.0 kg
[~2018-08-16 18:56] MED LIST changes: +CEPH-443 PO; -CYCL-319 PO; +CYCL10TA7 PO; +DOXY100T20 PO; +HYDR-4011 PO; -HYDR-906 PO; +NAPR-985 PO; +RANI150T35 PO; -RANI150T9 PO
[2018-08-16 19:00] VITALS: Ht 165.1 cm; Wt 80.0 kg
[2018-08-16] MEDS ORDERED: IBUP-1542 PO (22:50)
--- NOTE | 2018-08-16 22:50 | ERD ---
ER Documentation Chief Complaint Chief Complaint RIGHT FLANK PAIN X 3 DAYS HPI This is a 38-year-old male with a past medical history of gastritis who is presenting with 3 days of waxing and waning right-sided flank pain and right- sided abdominal pain, worse with movement. The patient does not endorse any other alleviating or exacerbating factors. The patient reports that he woke up with it. He does not recall any trauma or injury. He denies any nausea or vomiting. He denies any dysuria or hematuria or urgency or frequency. He denies any constipation or diarrhea. He denies any black or bloody or tarry stools. The patient does not have a history of kidney stones. He does not have a history of gallstones. The patient's symptoms do not appear related to eating. The patient denies feeling sick recently. The patient denies fever or chills. The patient has had no headache or vision changes. The patient does not endorse neck or back pain. The patient denies lightheadedness or dizziness. The patient has had no chest pain or trouble breathing. The patient has had no focal deficits. The patient has had no weakness or numbness or tingling to the face or extremities. ROS All systems reviewed and are negative except as per history of present illness. Medications Home Meds Active Scripts Cephalexin* (Keflex*) 500 Mg Capsule, 500 MG PO BID for 7 Days, CAP Prov:SAMUEL KONG PA-C 05/03/18 Doxycycline Hyclate* (Doxycycline Hyclate*) 100 Mg Tablet., 100 MG PO BID for 7 Days, TAB Prov:SHIV GIBSON PA-C 01/18/18 Naproxen* (Naprosyn*) 500 Mg Tablet, 500 MG PO BID PRN for PAIN AND/OR INF LAMMATION, #30 TAB Prov:SHIV GIBSON PA-C 01/18/18 Esomeprazole Mag Trihydrate (Nexium) 40 Mg Capsule.dr, 40 MG PO DAILY, #30 CAP Prov:RAY DELGADILLO PA-C 04/04/17 Loperamide Hcl* (Imodium*) 2 Mg Capsule, 2 MG PO .AFTER EA LOOSE BM PRN for DIARRHEA, #10 TAB Prov:RAY DELGADILLO PA-C 04/04/17 Ranitidine Hcl* (Zantac*) 150 Mg Tablet, 150 MG PO BID PRN for EPIGASTRIC PAIN, #30 TAB Prov:RAY DELGADILLO PA-C 03/31/17 Cyclobenzaprine Hcl* (Cyclobenzaprine Hcl*) 10 Mg Tablet, 10 MG PO TID, #15 TAB Prov:MARY BETH CHRISTIANSON NP 03/21/17 Hydrocodone/Acetaminophen ([place] 5-325 Tablet) 1 Each Tablet, 1 TAB PO Q6H PRN for PAIN, #20 TAB Prov:MARY BETH CHRISTIANSON NP 03/21/17 Ibuprofen* (Motrin*) 600 Mg Tab, 600 MG PO Q6H PRN for PAIN AND OR ELEVATED TEMP, #30 TAB Prov:MARY BETH CHRISTIANSON NP 03/21/17 Reported Medications Ibuprofen (Motrin) 400 Mg Tablet 07/23/10 Acetaminophen (Tylenol) 500 Mg Tab 07/23/10 Allergies Allergies: Coded Allergies: No Known Drug Allergies (Verified Allergy, Mild, 04/04/17) PMhx/Soc Medical and Surgical Hx: pt denies Medical Hx, pt denies Surgical Hx History of Surgery: No Anesthesia Reaction: No Hx Neurological Disorder: No Hx Respiratory Disorders: No Hx Cardiac Disorders: No Hx Psychiatric Problems: No Hx Miscellaneous Medical Probl: Yes (GASTRITIS) Hx Alcohol Use: Yes Hx Substance Use: No Hx Tobacco Use: No Smoking Status: Never smoker Physical Exam Vitals Vital Signs Date Temp Pulse Resp B/P (MAP) Pulse Ox O2 O2 Flow FiO2 Time Delivery Rate 08/16/18 97.6 82 20 135/86 99 19:00 (102) Physical Exam Const: No acute distress Head: Atraumatic Eyes: Normal Conjunctiva ENT: Normal External Ears, Nose and Mouth. Neck: Full range of motion. No meningismus. Resp: Clear to auscultation bilaterally Cardio: Regular rate and rhythm, no murmurs Abd: Soft, non distended. Right lower quadrant abdominal tenderness, mild. No rebound or guarding. Normal bowel sounds Skin: No petechiae or rashes Back: No midline. Mild right-sided flank tenderness. Ext: No cyanosis, or edema Neur: Awake and alert Psych: Normal Mood and Affect Procedures/MDM MDM The patient's presentation warrants further investigation. Previous medical records, if available, were reviewed. IMAGING Imaging and Radiology interpretation reviewed. CT Abd/Pelvis FINDINGS: CT abdomen Visualized lung bases: Clear. No significant pleural or pericardial effusion. Liver: Limited evaluation without IV contrast. There are 4 low attenuation foci identified within the liver, largest in anterior segment 2, measuring 7.5 mm. Capsule margin is smooth. Gallbladder and bile ducts: No calcified gallstones or pericholecystic fluid. No biliary ductal dilatation. Spleen: Normal appearance. Pancreas: Normal appearance. No ductal dilatation. No mass. No peripancreatic stranding. Adrenal glands: Normal appearance. Kidneys: No hydronephrosis or renal stones. Vasculature: No abdominal aortic aneurysm. Calcified plaque absent. Negative IVC. Lymph nodes: No adenopathy. GI: No hiatal hernia. No evidence of bowel wall thickening or obstruction. Peritoneal cavity: No free fluid or free air. CT pelvis GI: Negative terminal ileum. Negative appendix. Sigmoid diverticulosis. Negative rectum. : Genitourinary structures are unremarkable. Peritoneal cavity: No free fluid or loculated fluid collections. Lymph nodes: No adenopathy. Osseous structures: No lytic or blastic lesions. IMPRESSION: 1. 4 low attenuation liver foci, largest measuring 7.5 mm. These could represent cysts or small hemangiomas. 2. Minimal sigmoid diverticulosis. Electronically viewed and signed by Physician Betina on 08/16/2018 22:25 TREATMENT/DISPOSITION The patient presents for right-sided flank pain and right-sided abdominal pain. He was evaluated for the possibility of nephrolithiasis, though the patient does not endorse any dysuria or hematuria. He was also evaluated for the possibility of appendicitis as the patient's tenderness was primarily in the right lower quadrant on exam. The patient CT scan does not reveal nephrolithiasis or appendicitis. The patient's vital signs are unremarkable. At this time, I do have a very low suspicion for an infectious etiology of symptoms. A musculoskeletal etiology is certainly a possibility. It did reveal an i ncidental finding of possible liver cyst versus hemangioma. This may be evaluated further in an outpatient setting. There is also evidence of diverticulosis without diverticulitis. The patient presents with abdominal pain. The patient does not have any evidence of peritonitis. The patient does not have clinical symptoms concerning for mesenteric ischemia or ischemic colitis. The patient does not have right upper quadrant tenderness, and I have low suspicion for gallstones, cholecystitis or biliary colic. The patient does not have any epigastric pain. I have low suspicion for gastritis, PUD or GERD. The patient does not have left upper quadrant tenderness. I have low suspicion for pancreatitis. The patient does not have suprapubic tenderness. I have decreased suspicion for cystitis. The patient does not have any left lower quadrant tenderness, and I have low suspicion for diverticulosis or diverticulitis. The patient does not have any palpable pulsatile mass or severe abdominal pain radiating to the back. I have low suspicion for aortic aneurysm, dissection or rupture. Upon reevaluation of the patient, symptoms have improved. No emergent diagnoses were identified. At this time, I feel that the patient stable for discharge. The patient was instructed to follow-up with a primary care physician in 1-3 days. The patient will be given strict precautions with which to return to the emergency department. Prescriptions: Ibuprofen The patient's blood pressure was elevated at greater than 120/80 while in the emergency department. The patient was otherwise stable with no evidence of hypertensive urgency or emergency. The patient does not require admission for blood pressure control. I have discussed with the patient the risks of hypertension. I have instructed the patient to return to the ER for any new or worsening symptoms including chest pain, shortness of breath, headache, blurred vision, confusion, nausea, vomiting or LOC. I have advised the patient to follow up with the primary care physician for outpatient monitoring and treatment for hypertension in 1-3 days. Disclaimer: Inadvertent spelling and grammatical errors are likely due to EHR/dictation software use and do not reflect on the overall quality of patient care. Note that the electronic time recorded on this note does not necessarily reflect the actual time of the patient encounter. Departure Diagnosis: Primary Impression: Right lower quadrant abdominal pain Additional Impression: Acute right flank pain Condition: Stable Patient Instructions: Abdominal Pain Additional Instructions: Thank you for for coming to [facility] for your care today. Please ask your nurse or provider if you have questions about your care today and do not leave until all your questions have been answered. Please use any medications given as directed and follow-up with your doctor (or the doctor you were referred to) in the next 1-3 days. If you do not have a primary care doctor you may follow up at the [facility] or [facility] (listed below). You may also use motrin and tylenol as needed for fever and/or pain unless instructed otherwise by your provider or nurse. Indications for more urgent follow-up have been discussed, but you may return to the Emergency Department at ANY time for any worrisome or worsening symptoms. If you have abdominal pain, please know that no test or exam you received is perfect and you should follow up within 8 hours for continued pain. If you had any imaging studies today, such as an X-Ray or CT Scan, these studies will be reviewed later by a radiologist. You will be called if there are important findings that were not identified today, so make sure the contact information you provided at registration is correct. If you received any narcotic pain control medicine today, such as Vicodin, Morphine or Dilaudid, your coordination and judgment may be affected for a number of hours. Please do not drive or operate heavy machinery, and you may want someone to assist you at home. If you were given a prescription for narcotic medication, be aware that it is very addictive- use sparingly and only if necessary. PLEASE SEEK FURTHER EVALUATION AND MANAGEMENT AT YOUR DOCTORS OFFICE WITHIN THE NEXT 1-3 DAYS. IT IS YOUR RESPONSIBILITY TO MAKE AN APPOINTMENT FOR FOLOW-UP CARE. IF YOU HAVE A PRIMARY DOCTOR, PLEASE CALL THEIR OFFICE TO SCHEDULE AN APPOINTMENT FOR FOLLOW UP. IF YOU DO NOT HAVE A PRIMARY DOCTOR YOU CAN CALL OUR PHYSICIAN REFERRAL HOTLINE AT IF YOU CAN NOT AFFORD TO SEE A PHYSICIAN YOU CAN CHOSE FROM THE FOLLOWING [facility] CL[facility]ICS: [facility] [address] [facility]. [facility] [address] [facility]. [facility] [address] [facility] [facility] [address] [facility] [facility] [address] [facility]. [facility]. [address] FENG TREJO MD Aug 16, 2018 22:50
[2018-08-16 23:13] VITALS: BP 137/90; PULSE 69; RESP 19
[2018-08-16] MEDS ORDERED: KETOROLAC 15 MG INJ IM STA (23:14)
== END 2018-08-16 23:47 | disposition home or self-care (01) ==
LOC: FTE 18:56
DX: R10.31 Right lower quadrant pain (principal)
CPT/HCPCS: 74176; 96372; J1885; Z7502